=== PATIENT | male | born 1950 | race Caucasian/White ===

== ENCOUNTER → 2022-04-24 | Outpatient (CLI) | payer BC ==
[~2022-04-24] MED LIST: ABILIFY15 MG PO; ACTOS30 MG PO; ASPIRIN CHEWABL81 M1 PO; ATIVAN1 MG PO; BYSTOLIC5 MG PO; DRISDOL50000 IU PO; Depakote ER500 MG PO; GLUCOPHAGE1000 MG PO; GLUCOTROL10 MG PO; INVEGA9 MG PO; PRAVACHOL20 MG PO; VASOTEC20 MG PO
== END | disposition home or self-care (01) ==
LOC: RESCLI 13:33
PROVIDERS: ATTEND Internal Medicine
DX: E11.9 Type 2 diabetes mellitus without complications (principal); F31.9 Bipolar disorder, unspecified; E78.5 Hyperlipidemia, unspecified; Z00.00 Encounter for general adult medical examination without abnormal findings; I48.91 Unspecified atrial fibrillation; D64.9 Anemia, unspecified; E55.9 Vitamin D deficiency, unspecified; I25.10 Atherosclerotic heart disease of native coronary artery without angina pectoris; I10 Essential (primary) hypertension; Z98.890 Other specified postprocedural states; Z87.891 Personal history of nicotine dependence; Z79.84 Long term (current) use of oral hypoglycemic drugs; Z79.899 Other long term (current) drug therapy